=== PATIENT | male | born 1945 | race Caucasian/White ===

== ENCOUNTER 2017-10-19 07:33 | Outpatient (CLI) | payer OTHER ==
--- NOTE | 2017-10-19 09:41 | RAD ---
CHEST 2 VIEWS: History Dyspnea. FINDINGS: Cardiac silhouette and pulmonary vasculature are unremarkable. Mediastinum is midline. Postoperativ e changes. No confluent airspace consolidation, pneumothorax, or pleural fluid. IMPRESSION: No active cardiopulmonary abnormalities are demonstrated. POS: OFF
--- NOTE | 2017-10-20 15:27 | PFT ---
PATIENT HISTORY: HEIGHT: WEIGHT: SMOKER: HOW LONG: PACKS PER DAY PRODUCTIVE COUGH: LUNG DISEASE: PHYSICIAN INTERPRETATION FINAL REPORT: Patient and good effort and fair cooperation. He had shortness of breath after walking and talking and during the test. FVC 2.55 (59%), FEV1 2.01 (70%), FEV1/FVC 0.79. TLC 5.28 (77%), FRC 2.74 (69%), RV 2.67 (103%). There is symmetric reduction to the FEV1 and the FVC, suggestive of a restrictive profile. The expiratory limb of the flow volume flow volume loop does not have a significant scooping contour. Inspiratory limb is also normal. Total lung capacity is mildly reduced. Residual volume falls within the normal limits, but this is likely a function of incomplete exhalation as the expiratory reserve volume was extraordinarily reduced. IMPRESSION: Overall, these pulmonary function studies are consistent with moderate restrictive process with no significant improvement following bronchodilator. Diffusion capacity could help to interpret these data. Body habitus is likely contributing to these findings, though radiographic correlation should be considered if interstitial process is suspected. Shipping Associate: Detail Technician: ZAEN CRUZ
== END 2017-10-19 07:34 | disposition home or self-care (01) ==
LOC: CP 07:33
PROVIDERS: ATTEND Orthopaedic Surgery
DX: J45.909 Unspecified asthma, uncomplicated (principal)
CPT/HCPCS: 71046; 94060; 94727